=== PATIENT | female | born 1995 | race Caucasian/White ===

== ENCOUNTER 2022-12-16 21:04 | Outpatient (REF) | payer MEDICAID, SELFPAY ==
[2022-12-16 16:53] LABS: ALT 18 U/L (14-59); AST 18 U/L (15-37); Albumin 4.3 g/dL (3.4-5.0); Alkaline Phosphatase 70 U/L (46-116); Anion Gap 10.6 mmol/L (3-11); BUN 14 mg/dL (7-18); Bilirubin, Total 0.6 mg/dL (0.2-1.0); CO2 23.4 mmol/L (21.0-32.0); CREATININE 0.8 mg/dL (0.55-1.02); Calcium 9.3 mg/dL (8.5-10.1); Calculated LDL 143 mg/dL (<100); Chloride 104 mmol/L (98-107); Cholesterol 214 mg/dL (<200); Ferritin 85 ng/mL (8-252); Glucose 85 mg/dL (74-106); HDL Cholesterol 49 mg/dL (40-60); Potassium 4.3 mmol/L (3.5-5.1); Sodium 138 mmol/L (136-145); Total Protein 7.7 g/dL (6.4-8.2); Triglyceride 112 mg/dL (<150)
[2022-12-20 15:55] LABS: Hepatitis B Surface Ag Negative (Negative)
[2022-12-20 15:58] LABS: HBs Antibody, Quant 250.7 mIU/mL (See Note); Hepatitis B Surface Ab Positive (See Note)
[2022-12-20 16:43] LABS: Hepatitis C Ab w Rflx HCV PCR Negative (Negative)
== END 2022-12-16 21:05 | disposition home or self-care (01) ==
LOC: NCHCN 21:04
PROVIDERS: Visit Provider Family Medicine
DX: Z00.00 Encounter for general adult medical examination without abnormal findings (principal); R74.8 Abnormal levels of other serum enzymes; B19.10 Unspecified viral hepatitis B without hepatic coma
CPT/HCPCS: 80053; 80061; 86706; 86803; 87340; 82728